=== PATIENT | male | born 1940 | race American Indian/Alaskan Native ===

== ENCOUNTER 2020-03-17 13:21 | Outpatient (CLI) | payer MEDICARE ==
--- NOTE | 2020-03-17 14:40 | Cat Scan Report ---
CT chest wo con INDICATION / CLINICAL INFORMATION: COPD,CHRONIC OBSTRUCTIVE PULMONARY. TECHNIQUE: All CT scans at this location are performed using CT dose reduction for ALARA by means of automated e xposure control. COMPARISON: None available. FINDINGS: There is elevation of the right hemidiaphragm. Mild diffuse chronic lung disease is seen. No other fo arnold parenchymal abnormality is present. No enlarged mediastinal or hilar lymph nodes are identified. Diffuse atherosclerotic change is seen. The adrenal glands are normal. No significant skeletal abnorm ality is identified. IMPRESSION: Elevation of the right hemidiaphragm with mild diffuse chronic lung disease Signer Name: Ten Nava MD FACR Signed: 03/17/2020 2:35 PM Workstation Name: [id number]
== END 2020-03-17 13:22 | disposition home or self-care (01) ==
LOC: CT 13:21
PROVIDERS: ATTEND Internal Medicine
DX: J44.1 Chronic obstructive pulmonary disease with (acute) exacerbation (principal); J98.6 Disorders of diaphragm; I10 Essential (primary) hypertension; K21.9 Gastro-esophageal reflux disease without esophagitis
CPT/HCPCS: 71250